=== PATIENT | female | born 1990 | race African-American/Black ===

== ENCOUNTER 2022-11-23 14:31 | Emergency (ER) | payer OTHER ==
[~2022-11-23] VITALS: Ht 162.6 cm; Wt 90.7 kg
== END 2022-11-23 15:45 | disposition home or self-care (01) ==
LOC: ED 14:31
DX: K27.9 Peptic ulcer, site unspecified, unspecified as acute or chronic, without hemorrhage or perforation (principal); Z76.0 Encounter for issue of repeat prescription
CPT/HCPCS: 99281